=== PATIENT | male | born 1975 | race Caucasian/White ===

== ENCOUNTER 2019-10-08 11:39 | Inpatient (IN) | payer OTHER ==
--- NOTE | 2019-10-08 11:58 | BHS.RME ---
Substance Use & Tx History - Substance Use History Heroin Substance amount: 1 bundle Frequency of use: Daily Substance route: Injection (ex: intravenous or skin popping) Date of Last Use: 10/07/19 Cocaine- Powder Substance amount: $300 Frequency of use: Daily Substance route: Inhalation (ex: sniffing or snorting) Date of Last Use: 10/07/19 Marijuana/Hashish Substance amount: 1 bag Frequency of use: Daily Substance route: Smoking Date of Last Use: 10/07/19 Nicotine Substance amount: 3 ciggs Frequency of use: Daily Substance route: Smoking Date of Last Use: 10/08/19 Physical/Psych/Mental Status - Behavior General Behavior: Increased activity (restlessness, agitation) Eye Contact: Normal - Cooperativeness Cooperativeness: Cooperative - Thinking Thought Processes: Tight, Logical, Goal Directed Thought content: Future oriented - Physical Health Problems Is patient presently having any pain?: No Does patient presently have any injuries (include location): No Does patient currently have a fever: No Is patient : No COWS - Scale Resting Pulse: 0= [place] 80 or Below Sweatin= Chills/Flushing Restless Observation: 1= Difficult to Sit Still Pupil Size: 1= Pupils >than Normal Bone or Joint Aches: 1= Mild Discomfort Runny Nose/ Eye Tearin= Nasal Congestion GI Upset > 30mins: 2= Nausea/Diarrhea Tremor Observation: 1= Tremor [place], Not Seen Yawning Observation: 1= 1-2x During Session Anxiety or Irritability: 1=Feels Anxious/Irritable Goose Flesh Skin: 0=Smooth Skin COWS Score: 10 (used 3 am this morning)
[2019-10-08 15:35] VITALS: BMI 22.4
--- NOTE | 2019-10-08 16:22 | HP ---
COWS - Scale Resting Pulse: 0= [place] 80 or Below Sweatin= Chills/Flushing Restless Observation: 1= Difficult to Sit Still Pupil Size: 1= Pupils >than Normal Bone or Joint Aches: 1= Mild Discomfort Runny Nose/ Eye Tearin= Nasal Congestion GI Upset > 30mins: 2= Nausea/Diarrhea Tremor Observation: 1= Tremor [place], Not Seen Yawning Observation: 1= 1-2x During Session Anxiety or Irritability: 1=Feels Anxious/Irritable Goose Flesh Skin: 0=Smooth Skin COWS Score: 10 (used 3 am this morning) CIWA Score - Admission Criteria OASAS Guidelines: Admission for Medically Managed Detox: Requires at least one of the followin. CIWA greater than 12 2. Seizures within the past 24 hours 3. Delirium tremens within the past 24 hours 4. Hallucinations within the past 24 hours 5. Acute intervention needed for co occurring medical disorder 6. Acute intervention needed for co occurring psychiatric disorder 7. Severe withdrawal that cannot be handled at a lower level of care (continued vomiting, continued diarrhea, abnormal vital signs) requiring intravenous medication and/or fluids 8. Admitting History and Physical - Admission History of Present Illness: Patient presents to [facility] today requesting for detox from heroin PMH: HIV+, HTN PSH: spinal surgery secondary to trauma; screws in back PSYCH: anxiety, depression SOCIAL/DOMICILED:Lives in his apt in the [place] LEGAL: None Substance Use & Tx History - Substance Use History Heroin Substance amount: 1 bundle Frequency of use: Daily Substance route: Injection (ex: intravenous or skin popping) Date of Last Use: 10/07/19 First use at age 19 ODX3, last was 1 wk ago, no narcan at home Cocaine- Powder Substance amount: $300 Frequency of use: Daily Substance route: Inhalation (ex: sniffing or snorting) Date of Last Use: 10/07/19 First use at age 13 Marijuana/Hashish Substance amount: 1 bag Frequency of use: Daily Substance route: Smoking Date of Last Use: 10/07/19 First use at age 11 Nicotine Substance amount: 3 ciggs Frequency of use: Daily Substance route: Smoking Date of Last Use: 10/08/19 First use at age 13 - Advance Directives Advance Directives: Yes: Health Care Proxy - Smoking History Smoking history: Current every day smoker Have you smoked in the past 12 months: Yes Aproximately how many cigarettes per day: 3 Admission ROS BHS - HPI Allergies/Adverse Reactions: Allergies Allergy/AdvReac Type Severity Reaction Status Date / Time No Known Allergies Allergy Verified 10/08/19 15:19 Exam Limitations: No Limitations - Ebola screening Have you traveled outside of the country in the last 21 days: No Have you been sick,other than usual withdrawal symptoms: No Do you have a fever: No - Review of Systems Constitutional: No Symptoms Reported EENT: reports: No Symptoms Reported, Other (wears reading glasses) Respiratory: reports: No Symptoms reported Cardiac: reports: No Symptoms Reported GI: reports: Nausea : reports: No Symptoms Reported Musculoskeletal: reports: Back Pain, Muscle Pain Integumentary: reports: No Symptoms Reported Neuro: reports: Tremors (mild) Endocrine: reports: No Symptoms Reported Hematology: reports: No Symptoms Reported Psychiatric: reports: No Sypmtoms Reported, Orientated x3 Patient History - Patient Medical History Hx Asthma: Yes (reports having ashtma previously but denies currently.pump used 1 month ago) Hx Chronic Obstructive Pulmonary Disease (COPD): No Hx Cardiac Disorders: No Hx Hypertension: Yes Hx Seizures: No Hx Diabetes: No Hx Gastrointestinal Disorders: No Hx Genitourinary Disorders: No Hx Sexually Transmitted Disorders: No Hx Renal Disease (ESRD): No Hx Depression: Yes Hx Suicide Attempt: No Hx Schizophrenia: No - Patient Surgical History Past Surgical History: Yes Other Surgical History: 4 screws and prothesis disk in spine in 2017 Anesthesia Reaction: No - PPD History Previous Implant?: No (pt reports CXR needed b/c he always has positive PPD) Documented Results: Negative w/o proof Implanted On Prior [facility] Admission?: No Results: Negative - Smoking Cessation Smoking history: Current every day smoker Have you smoked in the past 12 months: Yes Aproximately how many cigarettes per day: 3 Hx Chewing Tobacco Use: No Initiated information on smoking cessation: Yes 'Breaking Loose' booklet given: 10/08/19 - Substances abused Cocaine Substance route: Injection Frequency: Daily Amount used: $300-400 worth Age of first use: 22 Date of last use: 10/08/19 Heroin Substance route: Injection Frequency: Daily Amount used: "1 bundle" Age of first use: 17 Date of last use: 10/07/19 Marijuana/Hashish Substance route: Smoking Frequency: Daily Amount used: "1 bag a day" Age of first use: 13 Date of last use: 10/08/19 Other Other (specify): Cigarettes Substance route: Smoking Frequency: Daily Amount used: " 3 cigarettes for the day" Age of first use: 13 Date of last use: 10/08/19 Admission Physical Exam [facility] - Vital Signs Vital Signs: Vital Signs - 24 hr 10/08/19 10/08/19 15:24 16:02 Temperature 97.0 F L 97.0 F L Pulse Rate 81 81 Respiratory 12 12 Rate Blood Pressure 125/88 125/88 - Physical General Appearance: Yes: Within Normal Limits, No Apparent Distress, Nourished, Appropriately Dressed HEENTM: Yes: Within Normal Limits, EOMI, Hearing grossly Normal, Normal ENT Inspection, Normocephalic, Normal Voice, MATT Respiratory: Yes: Within Normal Limits, Chest Non-Tender, Lungs Clear, Normal Breath Sounds, No Respiratory Distress, No Accessory Muscle Use Neck: Yes: Within Normal Limits, No masses,lesions,Nodules, Trachea in good position Breast: Yes: Breast Exam Deferred Cardiology: Yes: Within Normal Limits, Regular Rhythm, Regular Rate, Gallop/S4 Genitourinary: Yes: Within Normal Limits Back: Yes: Within Normal Limits, Normal Inspection, Other (Mid-line lumbar surgical scar) Extremities: Yes: Within Normal Limits, Normal Capillary Refill, Normal Inspection, Normal Range of Motion, Non-Tender Neurological: Yes: Fully Oriented, Alert, Normal Mood/Affect Integumentary: Yes: Within Normal Limits - Diagnostic (1) Heroin dependence Current Visit: Yes Status: Chronic (2) Cocaine use disorder Current Visit: Yes Status: Chronic (3) Marijuana dependence Current Visit: Yes Status: Chronic (4) Nicotine addiction Current Visit: Yes Status: Chronic Qualifiers: Nicotine product type: cigarettes Cleared for Admission [facility] - Detox or Rehab [facility] Level of Care: Medically Managed Detox Regimen/Protocol: Methadone Screened but not Admitted - Documentation of Visit Screened but not Admitted: No Breathalyzer - Breathalyzer Breathalyzer: 0 Urine Drug Screen - Test Device Lot number: [id number] Expiration date: 11/22/20 - Control Is test valid?: Yes - Results Drug screen NEGATIVE: No Urine drug screen results: THC-Marijuana, NAHUM-Cocaine, FEN-Fentanyl, MOP-Opiates Inpatient Rehab Admission - Rehab Decision to Admit Inpatient rehab admission?: No
[2019-10-08] MEDS ORDERED: IBUPROFEN 400 MG TABLET (FP) PO PRN (16:52)
[2019-10-08] MEDS ORDERED: ONDANSETRON *ODT* 4 MG TABLET SL ONE (16:52)
[2019-10-08] MEDS ORDERED: MAG HYDROX/AL HYDROX/SIMETH 30 ML UNIT-DOSE CUP PO PRN (16:52)
[2019-10-08] MEDS ORDERED: MENTHOL/PHENOL 1 EACH UD MM PRN (16:52)
[2019-10-08] MEDS ORDERED: BISMUTH SUBSALICYLATE 524 MG/30 ML UD PO PRN (16:52)
[2019-10-08] MEDS ORDERED: MAGNESIUM HYDROX 2400MG/30ML ORAL SUSPENSION 30 ML CUP PO PRN (16:52)
[2019-10-08] MEDS ORDERED: ACETAMINOPHEN 325 MG TABLET (FP) PO PRN ×2 (16:52)
[2019-10-08] MEDS ORDERED: MAGNESIUM CITRATE 300 ML BOTTLE PO PRN (16:52)
[2019-10-08] MEDS ORDERED: METHADONE HCL 10 MG TABLET (FOR DETOX USE ONLY) PO ONE (16:52)
[2019-10-08] MEDS: NICOTINE 7 MG/24 HOURS TOPICAL PATCH TD SCH (17:46)
[2019-10-08] MEDS: PRENATAL VITAMINS W/ FOLIC ACID TABLET (FP) PO SCH (17:47)
[2019-10-08] MEDS: hydrOXYzine PAMOATE 25 MG CAPSULE (FP) PO SCH ×2 (18:13→21:04)
[2019-10-08] MEDS: MELATONIN 5 MG TABLETS PO SCH (21:04)
[2019-10-08] MEDS: cloNIDine HCL 0.1 MG TABLET PO PRN (21:04)
[2019-10-08] MEDS: THIAMINE HCL 100 MG TABLET (FP) PO SCH (21:04)
[2019-10-08] MEDS: METHOCARBAMOL 500 MG TABLET PO PRN (21:04)
[2019-10-09] MEDS: hydrOXYzine PAMOATE 25 MG CAPSULE (FP) PO SCH (05:29)
--- NOTE | 2019-10-09 08:29 | CONSULT ---
[facility] Psychiatric Consult - Data Date of interview: 10/09/19 Admission source: [facility] Identifying data: Mr Gonzales is a 44 years old male, father of 2 children, unemployed receiving SSI, domiciled living in the [place] seeking detox treatment for opioid, cocaine and cannabis Substance Abuse History: Reports history of heroin, cocaine and marijuana use. Refer to addiction counselor's summary for further information Medical History: Significant for HIV since 2004, hypertension and spinal surgery in 2017. Smokes 3 cigarettes daily Psychiatric History: This is patient's first admission to this facility. He reports that his first psychiatric contact occured in 1998 while in intermediate in [place]. He said that he was diagnosed with depression and anxiety and started on Zyprexa, Vistaril and Klonopin. Reports that he has been receiving psychiatric treament since in and after he immigrated to [facility] in March 2017. He currently receives outpatient treatment at a [facility] clinic at [address] [place] [address] in the [place] and he is prescribed Zyprexa 2.5 mg/hs, Vistarin 50 mg/tid and Melatonin 5 mg/hs. Denies previous psychiatric hospitalization or suicidal attempt. At present, denes experiencing depressive, anxiet symptoms, S/H ideations. However, reports sleeping poorly Physical/Sexual Abuse/Trauma History: Denies history of abuse as a child or DV relationshi as an adult Mental Status Exam - Mental Status Exam Alert and Oriented to: Time, Place, Person Cognitive Function: Fair Patient Appearance: Well Groomed Mood: Hopeful, Euthymic Patient Behavior: Cooperative Voice Loudness: Normal Thought Process: Intact, Goal Oriented Thought Disorder: Not Present Hallucinations: Denies Suicidal Ideation: Denies Homicidal Ideation: Denies Insight/Judgement: Poor Sleep: Poorly Appetite: Good Muscle strength/Tone: Normal Gait/Station: Normal Psychiatric Findings - Problem List ([place] 1, 2,3) (1) Depression with anxiety Current Visit: Yes Status: Chronic (2) Substance-induced sleep disorder Current Visit: Yes Status: Acute (3) Uncomplicated opioid dependence Current Visit: Yes Status: Acute (4) Cocaine dependence Current Visit: Yes Status: Acute (5) Cannabis dependence Current Visit: Yes Status: Acute (6) Nicotine addiction Current Visit: Yes Status: Chronic Qualifiers: Nicotine product type: cigarettes (7) HIV (human immunodeficiency virus infection) Current Visit: Yes Status: Chronic (8) HTN (hypertension) Current Visit: Yes Status: Chronic - Initial Treatment Plan Initial Treatment Plan: 1) Continue Zyprexa 2.5 mg po HS. 2) Start Vistaril 50 mg po Q 4hrs prn for anxiety and Melatonin 5 mg po HS prn for insomnia. 3) Continue inpaient detoxification
[2019-10-09] MEDS ORDERED: METHADONE HCL 10 MG TABLET (FOR DETOX USE ONLY) ONE (08:39)
[2019-10-09] MEDS ORDERED: METHADONE HCL 5 MG TABLET (FOR DETOX USE ONLY) ONE (08:39)
[2019-10-09 09:44] LABS: HEMATOCRIT 41.2 % (35.4-49); HEMOGLOBIN 13.8 GM/dL (11.7-16.9); MCH 31.2 pg (25.7-33.7); MCHC 33.6 g/dl (32.0-35.9); MEAN CELL VOLUME 92.9 fl (80-96); MEAN PLT VOLUME 7.6 fl (7.5-11.1); PLATELET COUNT 287 K/MM3 (134-434); RBC 4.43 M/mm3 (4.00-5.60); RDW 14.4 % (11.9-15.9); WHITE BLOOD COUNT 4.4 K/mm3 (4.0-10.0)
[2019-10-09] MEDS ORDERED: METHADONE (DETOX) 20 MG, METHADONE (DETOX) 5 MG PO ONE (10:00)
[2019-10-09 10:02] LABS: POTASSIUM 4.3 mmol/L (3.5-5.1)
[2019-10-09 10:10] LABS: ALBUMIN 3.4 g/dl (3.4-5.0); BILIRUBIN,TOTAL 0.7 mg/dL (0.2-1); BLOOD UREA NITROGEN 12.8 mg/dL (7-18); CALCIUM 9.1 mg/dL (8.5-10.1); TOT PROT 6.8 g/dl (6.4-8.2)
--- NOTE | 2019-10-09 10:19 | EKG ---
Test Reason : Blood Pressure : / mmHG Vent. Rate : 072 BPM Atrial Rate : 072 BPM P-R Int : 156 ms QRS Dur : 100 ms QT Int : 370 ms P-R-T Axes : 083 072 057 degrees QTc Int : 405 ms NORMAL SINUS RHYTHM POSSIBLE LEFT ATRIAL ENLARGEMENT LEFT VENTRICULAR HYPERTROPHY ABNORMAL ECG NO PREVIOUS ECGS AVAILABLE Confirmed by RIOS SALGADO MD ([id number]) on 10/09/2019 10:18:44 AM Referred By: Confirmed By:RIOS SALGADO MD
[2019-10-09] MEDS: PRENATAL VITAMINS W/ FOLIC ACID TABLET (FP) PO SCH (11:06)
[2019-10-09] MEDS: NICOTINE 7 MG/24 HOURS TOPICAL PATCH TD SCH (11:06)
[2019-10-09] MEDS: hydrOXYzine PAMOATE 50 MG CAPSULE (FP) PO PRN ×3 (11:09→22:11)
--- NOTE | 2019-10-09 11:41 | PN ---
S COWS - Scale Resting Pulse: 0= [place] 80 or Below Sweatin= No chills or Flushing Restless Observation: 1= Difficult to Sit Still Pupil Size: 1= Pupils >than Normal Bone or Joint Aches: 1= Mild Discomfort Runny Nose/ Eye Tearin= Nasal Congestion GI Upset > 30mins: 2= Nausea/Diarrhea Tremor Observation of Outstretched Hands: 2= Slight Tremor Visible Yawning Observation: 1= 1-2x During Session Anxiety or Irritability: 2=Irritable/Anxious Goose Flesh Skin: 0=Smooth Skin COWS Score: 11 S Progress Note (SOAP) Subjective: alert,irritable,anxious,interrupted sleep,pain in the body and back,rash left forearm ,pain in the back,nausea,history of back surgery before Objective: 10/09/19 11:52 Vital Signs Temperature 97.3 F L 10/09/19 08:35 Pulse Rate 79 10/09/19 08:35 Respiratory Rate 17 10/09/19 08:35 Blood Pressure 123/84 10/09/19 08:35 O2 Sat by Pulse Oximetry (%) 98 10/09/19 08:35 Laboratory Last Values WBC 4.4 K/mm3 (4.0-10.0) 10/09/19 07:20 RBC 4.43 M/mm3 (4.00-5.60) 10/09/19 07:20 Hgb 13.8 GM/dL (11.7-16.9) 10/09/19 07:20 Hct 41.2 % (35.4-49) 10/09/19 07:20 MCV 92.9 fl (80-96) 10/09/19 07:20 MCH 31.2 pg (25.7-33.7) 10/09/19 07:20 MCHC 33.6 g/dl (32.0-35.9) 10/09/19 07:20 RDW 14.4 % (11.9-15.9) 10/09/19 07:20 Plt Count 287 K/MM3 (134-434) 10/09/19 07:20 MPV 7.6 fl (7.5-11.1) 10/09/19 07:20 Sodium 137 mmol/L (136-145) 10/09/19 07:20 Potassium 4.3 mmol/L (3.5-5.1) 10/09/19 07:20 Chloride 103 mmol/L (98-107) 10/09/19 07:20 Carbon Dioxide 30 mmol/L (21-32) 10/09/19 07:20 Anion Gap 4 MMOL/L (8-16) L 10/09/19 07:20 BUN 12.8 mg/dL (7-18) 10/09/19 07:20 Creatinine 1.0 mg/dL (0.55-1.3) 10/09/19 07:20 Est GFR (CKD-EPI)AfAm 106.36 10/09/19 07:20 Est GFR (CKD-EPI)NonAf 91.77 10/09/19 07:20 Random Glucose 84 mg/dL (74-106) 10/09/19 07:20 Calcium 9.1 mg/dL (8.5-10.1) 10/09/19 07:20 Total Bilirubin 0.7 mg/dL (0.2-1) 10/09/19 07:20 AST 18 U/L (15-37) 10/09/19 07:20 ALT 26 U/L (13-61) 10/09/19 07:20 Alkaline Phosphatase 66 U/L (45-117) 10/09/19 07:20 Total Protein 6.8 g/dl (6.4-8.2) 10/09/19 07:20 Albumin 3.4 g/dl (3.4-5.0) 10/09/19 07:20 Syphilis Serology Non-reactive (NONREACTIVE) 10/09/19 07:20 Assessment: 10/09/19 11:56 withdrawal symptom Plan: continue methadone regimen,add valium 10 mgs po q 4 hrs prn,for 72 hrs,hydrocortisone cream 0.05% over rash prn, on neurontin 800 mgs po bid,on genvoya
[2019-10-09] MEDS: ELVITEG/COB/EMTRI/TENOF (GENVOYA) TABLET (NF) PO SCH (11:55)
[2019-10-09] MEDS ORDERED: HYDROCORTISONE 0.5% TOPICAL CREAM 30 GM TUBE TP SCH (12:00)
[2019-10-09] MEDS: diazePAM 5 MG TABLET PO PRN ×3 (12:02→22:12)
[2019-10-09] MEDS: HYDROCORTISONE 0.5% TOPICAL CREAM 30 GM TUBE TP SCH ×2 (15:45→22:08)
[2019-10-09] MEDS: OLANZapine 2.5 MG TABLET PO SCH (22:08)
[2019-10-09] MEDS: MELATONIN 5 MG TABLETS PO SCH (22:08)
[2019-10-09] MEDS: GABAPENTIN 400 MG CAPSULE PO SCH (22:08)
[2019-10-09] MEDS: THIAMINE HCL 100 MG TABLET (FP) PO SCH (22:08)
[2019-10-10] MEDS ORDERED: METHADONE HCL 10 MG TABLET (FOR DETOX USE ONLY) PO ONE (10:00)
[2019-10-10] MEDS: ELVITEG/COB/EMTRI/TENOF (GENVOYA) TABLET (NF) PO SCH (10:19)
[2019-10-10] MEDS: GABAPENTIN 400 MG CAPSULE PO SCH ×2 (10:19→22:21)
[2019-10-10] MEDS: NICOTINE 7 MG/24 HOURS TOPICAL PATCH TD SCH (10:20)
[2019-10-10] MEDS: HYDROCORTISONE 0.5% TOPICAL CREAM 30 GM TUBE TP SCH ×2 (10:20→22:22)
[2019-10-10] MEDS: PRENATAL VITAMINS W/ FOLIC ACID TABLET (FP) PO SCH (10:20)
[2019-10-10] MEDS: diazePAM 5 MG TABLET PO PRN ×3 (10:23→22:24)
[2019-10-10] MEDS: NICOTINE POLACRILEX 2 MG GUM BUC PRN ×4 (10:24→23:10)
--- NOTE | 2019-10-10 12:17 | PN ---
BHS COWS - Scale Resting Pulse: 1= [place] 81-100 Sweatin= Chills/Flushing Restless Observation: 0= Sits Still Pupil Size: 0= Normal to Room Light Bone or Joint Aches: 2= Severe Diffuse Aches Runny Nose/ Eye Tearin= None GI Upset > 30mins: 0= None Tremor Observation of Outstretched Hands: 2= Slight Tremor Visible Yawning Observation: 0= None Anxiety or Irritability: 2=Irritable/Anxious Goose Flesh Skin: 0=Smooth Skin COWS Score: 8 BHS Progress Note (SOAP) Subjective: Complaints of anxiety, chills, body aches and shakes. Objective: 10/10/19 12:13 Vital Signs 10/10/19 10/10/19 05:11 08:35 Temperature 97.8 F 98.2 F Pulse Rate 71 92 H Respiratory 16 17 Rate Blood Pressure 138/81 146/90 O2 Sat by Pulse 99 98 Oximetry (%) Laboratory Last Values WBC 4.4 K/mm3 (4.0-10.0) 10/09/19 07:20 RBC 4.43 M/mm3 (4.00-5.60) 10/09/19 07:20 Hgb 13.8 GM/dL (11.7-16.9) 10/09/19 07:20 Hct 41.2 % (35.4-49) 10/09/19 07:20 MCV 92.9 fl (80-96) 10/09/19 07:20 MCH 31.2 pg (25.7-33.7) 10/09/19 07:20 MCHC 33.6 g/dl (32.0-35.9) 10/09/19 07:20 RDW 14.4 % (11.9-15.9) 10/09/19 07:20 Plt Count 287 K/MM3 (134-434) 10/09/19 07:20 MPV 7.6 fl (7.5-11.1) 10/09/19 07:20 Sodium 137 mmol/L (136-145) 10/09/19 07:20 Potassium 4.3 mmol/L (3.5-5.1) 10/09/19 07:20 Chloride 103 mmol/L (98-107) 10/09/19 07:20 Carbon Dioxide 30 mmol/L (21-32) 10/09/19 07:20 Anion Gap 4 MMOL/L (8-16) L 10/09/19 07:20 BUN 12.8 mg/dL (7-18) 10/09/19 07:20 Creatinine 1.0 mg/dL (0.55-1.3) 10/09/19 07:20 Est GFR (CKD-EPI)AfAm 106.36 10/09/19 07:20 Est GFR (CKD-EPI)NonAf 91.77 10/09/19 07:20 Random Glucose 84 mg/dL (74-106) 10/09/19 07:20 Calcium 9.1 mg/dL (8.5-10.1) 10/09/19 07:20 Total Bilirubin 0.7 mg/dL (0.2-1) 10/09/19 07:20 AST 18 U/L (15-37) 10/09/19 07:20 ALT 26 U/L (13-61) 10/09/19 07:20 Alkaline Phosphatase 66 U/L (45-117) 10/09/19 07:20 Total Protein 6.8 g/dl (6.4-8.2) 10/09/19 07:20 Albumin 3.4 g/dl (3.4-5.0) 10/09/19 07:20 Syphilis Serology Non-reactive (NONREACTIVE) 10/09/19 07:20 HIV Ag/Ab Combo Qual Presumptive positive (NEGATIVE) A* 10/09/19 07:20 Labs noted, pt has a history of HIV positive. 10/10/19 12:18 Assessment: 10/10/19 12:16 Alert and oriented x 3, in no acute respiratory distress. Full ROM, ambulating in the unit without assistance. Withdrawal symptoms. Plan: Continue detox protocol.
[2019-10-10] MEDS: hydrOXYzine PAMOATE 50 MG CAPSULE (FP) PO PRN ×2 (16:40→22:24)
[2019-10-10] MEDS: cloNIDine HCL 0.1 MG TABLET PO PRN (17:15)
[2019-10-10] MEDS: THIAMINE HCL 100 MG TABLET (FP) PO SCH (22:21)
[2019-10-10] MEDS: OLANZapine 2.5 MG TABLET PO SCH (22:21)
[2019-10-10] MEDS: MELATONIN 5 MG TABLETS PO SCH (22:22)
[2019-10-11] MEDS: hydrOXYzine PAMOATE 50 MG CAPSULE (FP) PO PRN ×5 (05:38→23:47)
[2019-10-11] MEDS: diazePAM 5 MG TABLET PO PRN ×5 (05:38→23:47)
[2019-10-11] MEDS ORDERED: METHADONE HCL 5 MG TABLET (FOR DETOX USE ONLY) ONE (09:42)
[2019-10-11] MEDS ORDERED: METHADONE HCL 10 MG TABLET (FOR DETOX USE ONLY) ONE (09:42)
[2019-10-11] MEDS ORDERED: METHADONE (DETOX) 10 MG, METHADONE (DETOX) 5 MG PO ONE (10:00)
[2019-10-11] MEDS: PRENATAL VITAMINS W/ FOLIC ACID TABLET (FP) PO SCH (10:57)
[2019-10-11] MEDS: ELVITEG/COB/EMTRI/TENOF (GENVOYA) TABLET (NF) PO SCH (10:57)
[2019-10-11] MEDS: NICOTINE 7 MG/24 HOURS TOPICAL PATCH TD SCH (10:58)
[2019-10-11] MEDS: HYDROCORTISONE 0.5% TOPICAL CREAM 30 GM TUBE TP SCH ×2 (10:58→22:15)
[2019-10-11] MEDS: GABAPENTIN 400 MG CAPSULE PO SCH ×2 (10:58→22:14)
[2019-10-11] MEDS ORDERED: LOSARTAN POTASSIUM 25 MG TABLET PO ONE (12:37)
--- NOTE | 2019-10-11 12:43 | PN ---
BHS COWS - Scale Resting Pulse: 1= [place] 81-100 Sweatin= Chills/Flushing Restless Observation: 0= Sits Still Pupil Size: 0= Normal to Room Light Bone or Joint Aches: 2= Severe Diffuse Aches Runny Nose/ Eye Tearin= None GI Upset > 30mins: 1= Stomach Cramp Tremor Observation of Outstretched Hands: 2= Slight Tremor Visible Yawning Observation: 0= None Anxiety or Irritability: 0= None Goose Flesh Skin: 0=Smooth Skin COWS Score: 7 BHS Progress Note (SOAP) Subjective: Body aches, anxiety, interrupted sleep. Patient stated he takes Avapro at home for his HTN but it's not available here and he wasn't ordered for any b/p medication and is concerned. Objective: 10/11/19 12:43 Last Vital Signs Temp Pulse Resp BP Pulse Ox 98.7 F 97 H 18 132/90 99 10/11/19 09:00 10/11/19 09:00 10/11/19 09:00 10/11/19 09:00 10/11/19 09:00 Laboratory Tests 10/09/19 10/09/19 10/09/19 07:20 07:20 07:20 WBC 4.4 RBC 4.43 Hgb 13.8 Hct 41.2 MCV 92.9 MCH 31.2 MCHC 33.6 RDW 14.4 Plt Count 287 MPV 7.6 Sodium Potassium Chloride Carbon Dioxide Anion Gap BUN Creatinine Est GFR (CKD-EPI)AfAm Est GFR (CKD-EPI)NonAf Random Glucose Calcium Total Bilirubin AST ALT Alkaline Phosphatase Total Protein Albumin Syphilis Serology Non-reactive HIV Ag/Ab Combo Qual Presumptive positive A* HIV-1 Antibody HIV Ag/Ab Interpret HIV-2 Antibody HIV 1&2 Ag/Ab, 4th Gen 10/09/19 10/09/19 07:20 07:20 WBC RBC Hgb Hct MCV MCH MCHC RDW Plt Count MPV Sodium 137 Potassium 4.3 Chloride 103 Carbon Dioxide 30 Anion Gap 4 L BUN 12.8 Creatinine 1.0 Est GFR (CKD-EPI)AfAm 106.36 Est GFR (CKD-EPI)NonAf 91.77 Random Glucose 84 Calcium 9.1 Total Bilirubin 0.7 AST 18 ALT 26 Alkaline Phosphatase 66 Total Protein 6.8 Albumin 3.4 Syphilis Serology HIV Ag/Ab Combo Qual HIV-1 Antibody Positive H HIV Ag/Ab Interpret Hiv-1 positive HIV-2 Antibody Negative HIV 1&2 Ag/Ab, 4th Gen Reactive H Labs reviewed Assessment: 10/11/19 12:46 Withdrawal sxs Elevated b/p noted Plan: Continue detox Encouraged PO water intake Follow up on presumptive positive HIV test HTN: Avapro not available (NF), will start on Losartan 25mg PO daily, first dose today. Patient can resume his Avapro when he's discharged home.
[2019-10-11] MEDS: NICOTINE POLACRILEX 2 MG GUM BUC PRN (19:45)
[2019-10-11] MEDS: THIAMINE HCL 100 MG TABLET (FP) PO SCH (22:14)
[2019-10-11] MEDS: OLANZapine 2.5 MG TABLET PO SCH (22:14)
[2019-10-11] MEDS: MELATONIN 5 MG TABLETS PO SCH (22:15)
[2019-10-12] MEDS ORDERED: METHADONE HCL 10 MG TABLET (FOR DETOX USE ONLY) PO ONE (10:00)
[2019-10-12] MEDS: GABAPENTIN 400 MG CAPSULE PO SCH ×2 (10:46→22:02)
[2019-10-12] MEDS: ELVITEG/COB/EMTRI/TENOF (GENVOYA) TABLET (NF) PO SCH (10:46)
[2019-10-12] MEDS: LOSARTAN POTASSIUM 50 MG TABLET (FP) PO SCH (10:46)
[2019-10-12] MEDS: HYDROCORTISONE 0.5% TOPICAL CREAM 30 GM TUBE TP SCH ×2 (10:47→22:01)
[2019-10-12] MEDS: NICOTINE 7 MG/24 HOURS TOPICAL PATCH TD SCH (10:47)
[2019-10-12] MEDS: PRENATAL VITAMINS W/ FOLIC ACID TABLET (FP) PO SCH (10:47)
[2019-10-12] MEDS: diazePAM 5 MG TABLET PO PRN (10:51)
[2019-10-12] MEDS: hydrOXYzine PAMOATE 50 MG CAPSULE (FP) PO PRN ×3 (12:17→22:03)
--- NOTE | 2019-10-12 12:30 | PN ---
BHS COWS - Scale Resting Pulse: 1= [place] 81-100 Sweatin= No chills or Flushing Restless Observation: 0= Sits Still Pupil Size: 0= Normal to Room Light Bone or Joint Aches: 1= Mild Discomfort Runny Nose/ Eye Tearin= Nasal Congestion GI Upset > 30mins: 1= Stomach Cramp Tremor Observation of Outstretched Hands: 2= Slight Tremor Visible Yawning Observation: 0= None Anxiety or Irritability: 2=Irritable/Anxious Goose Flesh Skin: 0=Smooth Skin COWS Score: 8 BHS Progress Note (SOAP) Subjective: alert,irritable,anxious,interrupted sleep Objective: 10/12/19 12:30 Vital Signs Temperature 97.1 F L 10/12/19 08:46 Pulse Rate 86 10/12/19 08:46 Respiratory Rate 19 10/12/19 08:46 Blood Pressure 143/78 10/12/19 08:46 O2 Sat by Pulse Oximetry (%) 96 10/12/19 08:46 Assessment: 10/12/19 12:30 withdrawal symptom Plan: continue detox methadone regimen,discharge in am
[2019-10-12] MEDS: METHOCARBAMOL 500 MG TABLET PO PRN (18:02)
--- NOTE | 2019-10-12 18:14 | PN ---
[facility] Progress Note Note: Psychiatry Attending's note (follow-up) : Approached by nurse and counselor. Concern : memory deficits/disorientation. Chart reviewed. Dr Elliott's note (10/09/19) : appreciated. Met with the patient at bedside. Doing fine. Was observed talking to RNs at the nurse's station. Ambulatory. Steady gait. Coherent/goal-directed speech. Alert and oriented to the three spheres. Future-oriented. Mr Oliveira asks to get rehabilitatiion her at [facility]. " I like it here. I would prefer to stay here rather than be sent elsewhere." Patient has a good understanding of the monegasque language. Stable mental status. Clear sensorium. No clinical evidence of impaired mentation. Baseline functioning. Of note : patient is still medication-seeking (vistaril not working / wants more diazepam). Limits set. Reassurance given. Brief conference with patient. Counselor explains discharge plans. Patient is informed of his potential transfer to [facility] in the morning. He is agreeable to plan. No indication for special observation or psychiatric reconsultation.
[2019-10-12] MEDS: OLANZapine 2.5 MG TABLET PO SCH (22:02)
[2019-10-12] MEDS: THIAMINE HCL 100 MG TABLET (FP) PO SCH (22:02)
[2019-10-12] MEDS: MELATONIN 5 MG TABLETS PO SCH (22:03)
[2019-10-13] MEDS: hydrOXYzine PAMOATE 50 MG CAPSULE (FP) PO PRN ×2 (05:42→09:56)
[2019-10-13] MEDS ORDERED: METHADONE HCL 5 MG TABLET (FOR DETOX USE ONLY) PO ONE (06:00)
[2019-10-13] MEDS: ELVITEG/COB/EMTRI/TENOF (GENVOYA) TABLET (NF) PO SCH (07:39)
--- NOTE | 2019-10-13 09:33 | PN ---
BHS COWS - Scale Resting Pulse: 0= [place] 80 or Below Sweatin= No chills or Flushing Restless Observation: 0= Sits Still Pupil Size: 0= Normal to Room Light Bone or Joint Aches: 0= None Runny Nose/ Eye Tearin= None GI Upset > 30mins: 0= None Tremor Observation of Outstretched Hands: 0= None Yawning Observation: 0= None Anxiety or Irritability: 1=Feels Anxious/Irritable Goose Flesh Skin: 0=Smooth Skin COWS Score: 1 BHS Progress Note (SOAP) Subjective: aleert,no complaint Objective: 10/13/19 09:32 Vital Signs Temperature 98.0 F 10/13/19 05:32 Pulse Rate 79 10/13/19 05:32 Respiratory Rate 16 10/13/19 05:32 Blood Pressure 157/77 10/13/19 05:32 O2 Sat by Pulse Oximetry (%) 96 10/13/19 05:32 Assessment: 10/13/19 09:32 detox completed,no withdrawal symptom Plan: stable for discharge today,follow up with [facility] as arrangement
--- NOTE | 2019-10-13 09:41 | DS ---
[facility] Detox Discharge Summary Admission Date: 10/08/19 Discharge Date: 10/13/19 - History Present History: Cannabis Dependence, Cocaine Dependence, Opioid Dependence Additional Comments: alert,oriented x 3 ambulation on the unit lung clear on auscultation bilaterally abdomen soft,no distension,no pain detox completed,no withdrawal symptom stable for discharge follow up with after care program as arrangement total time of discharge 35 minutes follow up with after care program [facility] as arrangement Pertinent Past History: neuropathy nicotine dependence hiv asthma anxiety and depression - Physical Exam Results Vital Signs: Vital Signs Temperature 98.0 F 10/13/19 05:32 Pulse Rate 79 10/13/19 05:32 Respiratory Rate 16 10/13/19 05:32 Blood Pressure 157/77 10/13/19 05:32 O2 Sat by Pulse Oximetry (%) 96 10/13/19 05:32 Pertinent Admission Physical Exam Findings: withdrawal signs and symptom Laboratory Last Values WBC 4.4 K/mm3 (4.0-10.0) 10/09/19 07:20 RBC 4.43 M/mm3 (4.00-5.60) 10/09/19 07:20 Hgb 13.8 GM/dL (11.7-16.9) 10/09/19 07:20 Hct 41.2 % (35.4-49) 10/09/19 07:20 MCV 92.9 fl (80-96) 10/09/19 07:20 MCH 31.2 pg (25.7-33.7) 10/09/19 07:20 MCHC 33.6 g/dl (32.0-35.9) 10/09/19 07:20 RDW 14.4 % (11.9-15.9) 10/09/19 07:20 Plt Count 287 K/MM3 (134-434) 10/09/19 07:20 MPV 7.6 fl (7.5-11.1) 10/09/19 07:20 Sodium 137 mmol/L (136-145) 10/09/19 07:20 Potassium 4.3 mmol/L (3.5-5.1) 10/09/19 07:20 Chloride 103 mmol/L (98-107) 10/09/19 07:20 Carbon Dioxide 30 mmol/L (21-32) 10/09/19 07:20 Anion Gap 4 MMOL/L (8-16) L 10/09/19 07:20 BUN 12.8 mg/dL (7-18) 10/09/19 07:20 Creatinine 1.0 mg/dL (0.55-1.3) 10/09/19 07:20 Est GFR (CKD-EPI)AfAm 106.36 10/09/19 07:20 Est GFR (CKD-EPI)NonAf 91.77 10/09/19 07:20 Random Glucose 84 mg/dL (74-106) 10/09/19 07:20 Calcium 9.1 mg/dL (8.5-10.1) 10/09/19 07:20 Total Bilirubin 0.7 mg/dL (0.2-1) 10/09/19 07:20 AST 18 U/L (15-37) 10/09/19 07:20 ALT 26 U/L (13-61) 10/09/19 07:20 Alkaline Phosphatase 66 U/L (45-117) 10/09/19 07:20 Total Protein 6.8 g/dl (6.4-8.2) 10/09/19 07:20 Albumin 3.4 g/dl (3.4-5.0) 10/09/19 07:20 Syphilis Serology Non-reactive (NONREACTIVE) 10/09/19 07:20 COVID-19 (KIERAN) Not detected (Not Detected) 10/08/19 15:30 HIV Ag/Ab Combo Qual Presumptive positive (NEGATIVE) A* 10/09/19 07:20 HIV-1 Antibody Positive (Negative) H 10/09/19 07:20 HIV Ag/Ab Interpret Hiv-1 positive (.) 10/09/19 07:20 HIV-2 Antibody Negative (Negative) 10/09/19 07:20 HIV 1&2 Ag/Ab, 4th Gen Reactive (Non Reactive) H 10/09/19 07:20 - Treatment Hospital Course: Detox Protocol Followed, Detoxed Safely, Responded well, Discharged Condition Good, Rehab Referral Accepted - Medication Discharge Medications: Ambulatory Orders Albuterol Sulfate Inhaler - [Ventolin Hfa Inhaler -] 1 - 2 inh PO QID 10/08/19 Elviteg/Cob/Emtri/Tenof Alafen [Genvoya Tablet] 1 each PO DAILY 10/08/19 Gabapentin 800 mg PO BID 10/08/19 Irbesartan [Avapro] 150 mg PO DAILY 10/08/19 Melatonin 5 mg PO HS 10/08/19 Olanzapine 2.5 mg PO HS 10/08/19 hydrOXYzine PAMOATE [Vistaril -] 50 mg PO TID PRN 10/08/19 - Diagnosis (1) Opioid dependence with withdrawal Current Visit: Yes Status: Acute (2) Cannabis dependence Current Visit: Yes Status: Acute (3) Cocaine dependence Current Visit: Yes Status: Acute (4) HIV (human immunodeficiency virus infection) Current Visit: Yes Status: Chronic (5) HTN (hypertension) Current Visit: Yes Status: Chronic (6) Weight loss Current Visit: Yes Status: Acute (7) Nicotine addiction Current Visit: Yes Status: Chronic Qualifiers: Nicotine product type: cigarettes (8) Neuropathy Current Visit: Yes Status: Acute - AMA Did Patient Leave Against Medical Advice: No
[2019-10-13 09:47] VITALS: BP 140/94; PULSE 92; TEMP 97.3
[2019-10-13] MEDS: NICOTINE 7 MG/24 HOURS TOPICAL PATCH TD SCH (09:53)
[2019-10-13] MEDS: PRENATAL VITAMINS W/ FOLIC ACID TABLET (FP) PO SCH (09:53)
[2019-10-13] MEDS: GABAPENTIN 400 MG CAPSULE PO SCH (09:54)
[2019-10-13] MEDS: LOSARTAN POTASSIUM 50 MG TABLET (FP) PO SCH (09:54)
[2019-10-13] MEDS: NICOTINE POLACRILEX 2 MG GUM BUC PRN (09:57)
[2019-10-13] MEDS: HYDROCORTISONE 0.5% TOPICAL CREAM 30 GM TUBE TP SCH (09:59)
== END 2019-10-13 12:52 | disposition other institution (70) | DRG 773 ==
LOC: YASAS 11:39 → Y6N 15:52
PROVIDERS: ADMIT Allergy & Immunology; ATTEND Allergy & Immunology
PROC: HZ2ZZZZ Detoxification Services for Substance Abuse Treatment (ICD-10-PCS; principal; 2019-10-08)
DX: F11.23 Opioid dependence with withdrawal (principal); F14.20 Cocaine dependence, uncomplicated; F12.20 Cannabis dependence, uncomplicated; F17.210 Nicotine dependence, cigarettes, uncomplicated; F19.282 Other psychoactive substance dependence with psychoactive substance-induced sleep disorder; F41.8 Other specified anxiety disorders; F32.9 Major depressive disorder, single episode, unspecified; Z21 Asymptomatic human immunodeficiency virus [HIV] infection status; G62.9 Polyneuropathy, unspecified; J45.909 Unspecified asthma, uncomplicated; I10 Essential (primary) hypertension; R21 Rash and other nonspecific skin eruption; R63.4 Abnormal weight loss; Z68.22 Body mass index [BMI] 22.0-22.9, adult; Z56.0 Unemployment, unspecified
CPT/HCPCS: 36415; 80053; 85027; 86780; 86803; 87389; 93005; 93010; J0735; U0003

== ENCOUNTER 2019-10-13 13:20 | Inpatient (IN) | payer OTHER ==
[2019-10-13] MEDS ORDERED: MAGNESIUM HYDROX 2400MG/30ML ORAL SUSPENSION 30 ML CUP PO PRN (13:55)
[2019-10-13] MEDS ORDERED: guaiFENesin 200 MG/10 ML 10 ML UNIT-DOSE CUPS PO PRN (13:55)
[2019-10-13] MEDS ORDERED: ACETAMINOPHEN 325 MG TABLET (FP) PO PRN (13:55)
[2019-10-13] MEDS ORDERED: LOPERAMIDE HCL 2 MG CAPSULE PO PRN (13:55)
[2019-10-13] MEDS ORDERED: MAGNESIUM CITRATE 300 ML BOTTLE PO PRN (13:55)
[2019-10-13] MEDS ORDERED: IBUPROFEN 400 MG TABLET (FP) PO PRN (13:55)
[2019-10-13] MEDS ORDERED: MENTHOL/PHENOL 1 EACH UD MM PRN (13:55)
[2019-10-13] MEDS ORDERED: P-EPHED 60MG/TRIPROLIDI 2.5MG TABLET PO PRN (13:55)
[2019-10-13] MEDS ORDERED: MAG HYDROX/AL HYDROX/SIMETH 30 ML UNIT-DOSE CUP PO PRN (13:55)
[2019-10-13] MEDS ORDERED: ALBUTEROL SO4 HFA INHALER IH PRN (13:59)
[2019-10-13] MEDS: hydrOXYzine PAMOATE 25 MG CAPSULE (FP) PO PRN ×2 (16:33→21:26)
--- NOTE | 2019-10-13 18:58 | PN ---
[facility] Progress Note Note: Psychiatry Attending's note : Patient is now at [address] For rehabilitation. Continuation of order for : zyprexa 2.5 mg po hs Done.
[2019-10-13] MEDS ORDERED: PT OWN MED DRAWER 7, Y5N ONE (21:00)
[2019-10-13] MEDS: GABAPENTIN 400 MG CAPSULE PO SCH (21:24)
[2019-10-13] MEDS: MELATONIN 5 MG TABLETS PO SCH (21:24)
[2019-10-13] MEDS: THIAMINE HCL 100 MG TABLET (FP) PO SCH (21:25)
[2019-10-13] MEDS: NICOTINE POLACRILEX 2 MG GUM BUC PRN (21:26)
[2019-10-13] MEDS: HYDROCORTISONE 0.5% TOPICAL CREAM 30 GM TUBE TP SCH (22:04)
[2019-10-13] MEDS: OLANZapine 2.5 MG TABLET PO SCH ×2 (22:05→22:30)
[2019-10-14] MEDS: ELVITEG/COB/EMTRI/TENOF (GENVOYA) TABLET (NF) PO SCH (07:40)
[2019-10-14] MEDS: LOSARTAN POTASSIUM 25 MG TABLET PO SCH (09:47)
[2019-10-14] MEDS: NICOTINE 14 MG/24 HOURS TOPICAL PATCH TD SCH (09:48)
[2019-10-14] MEDS: HYDROCORTISONE 0.5% TOPICAL CREAM 30 GM TUBE TP SCH ×2 (09:48→21:18)
[2019-10-14] MEDS: GABAPENTIN 400 MG CAPSULE PO SCH ×2 (09:49→21:17)
[2019-10-14] MEDS: PRENATAL VITAMINS W/ FOLIC ACID TABLET (FP) PO SCH (09:51)
[2019-10-14] MEDS: hydrOXYzine PAMOATE 25 MG CAPSULE (FP) PO PRN (09:51)
[2019-10-14] MEDS: NICOTINE POLACRILEX 2 MG GUM BUC PRN (10:07)
[2019-10-14] MEDS: LIDOCAINE 5% TOPICAL PATCH TP SCH (12:51)
--- NOTE | 2019-10-14 14:03 | CONSULT ---
[facility] Psychiatric Consult - Data Date of interview: 10/14/19 Admission source: Transfer from [address] [place] [address]. Identifying data: First admission to [address] for this 44 y/o [place] male enlisting in rehabilitation treatment for maintenance of therapeutic gains from detoxification at [address] [place] [address] and management of co-morbid mood disorder (anxiety). AJAY issues : opioid, cocaine, cannabis, benzodiazepines, nicotine, alcohol. Patient is , father of two, chronically unemployed and currently supported on [facility] benefits. Substance Abuse History: Discussed with the patient. AJAY profile as follows : Heroin. Substance amount: 1 bundle. Frequency of use: Daily. Substance route: Injection (ex: intravenous or skin popping). Date of Last Use: 10/07/19. First use at age 19. ODX3, last was 1 wk ago, no narcan at home. Cocaine- Powder. Substance amount: $300. Frequency of use: Daily. Substance route: Inhalation (ex: sniffing or snorting). Date of Last Use: 10/07/19. First use at age 13. Marijuana/Hashish. Substance amount: 1 bag. Frequency of use: Daily. Substance route: Smoking. Date of Last Use: 10/07/19. First use at age 11. Nicotine. Substance amount: 3 ciggs. Frequency of use: Daily. Substance route: Smoking. Date of Last Use: 10/08/19. First use at age 13. History of multiple AJAY treatment failures. Medical History: Medical history remains remarkable for HIV infection since 2005 (on ART medications), hypertension and spinal surgery (4 screws and prothesis disk in spine) in 2017. No reported allergies. Psychiatric History: Patient denies history of psychiatric hospitalizations. Since he emigrated to [facility] in 1998, the patient had resumed psychiatric OPD care at [facility] (sees his psychiatrist at a clinic located at [address] [place] [address] in the [place]) to address depression + anxiety disorder (diagnosis was already established by clinicians in [facility] in 1998). Mr Roxanne continues to be on a regimen of olanzapine 2.5 mg/hs + hydroxyzine 50 mg/q 6 hrs prn (no clonazepam). Patient denies antecedent of suicide attempts. Physical/Sexual Abuse/Trauma History: Patient denies. Additional Comment: Urine drug screen results: THC-Marijuana, NAHUM-Cocaine, FEN- Fentanyl, MOP-Opiates. Noted. Mental Status Exam - Mental Status Exam Alert and Oriented to: Time, Place, Person Cognitive Function: Good Patient Appearance: Well Groomed (tattoos on uepper extremities) Mood: Anxious Affect: Mood Congruent, Labile Patient Behavior: Appropriate, Cooperative Speech Pattern: Clear, Appropriate Voice Loudness: Normal Thought Process: Intact, Goal Oriented Thought Disorder: Not Present Hallucinations: Denies Suicidal Ideation: Denies Homicidal Ideation: Denies Insight/Judgement: Fair Sleep: Fair Appetite: Good Gait/Station: Normal Psychiatric Findings - Problem List ([place] 1, 2,3) (1) Heroin dependence Current Visit: Yes Status: Chronic (2) Cannabis dependence Current Visit: Yes Status: Chronic (3) Cocaine dependence Current Visit: Yes Status: Chronic (4) Nicotine dependence Current Visit: Yes Status: Chronic (5) Substance induced mood disorder Current Visit: Yes Status: Chronic (6) History of depression Current Visit: Yes Status: Chronic (7) Anxiety disorder Current Visit: Yes Status: Chronic (8) Insomnia Current Visit: Yes Status: Chronic - Initial Treatment Plan Initial Treatment Plan: Psychoeducation. Rehabilitation treatment initiated : motivational counseling, individual/supportive/group therapy. Recurrent briefs on COVID-19 pandemic (social distancing, face mask, hand washing). Recreational therapy. Discussion of medications. Constant requests for benzodiazepines are addressed with education + firm limits. Patient has responded positively to current therapeutic interventions (described above). He agrees to take : olanzapine 2.5 mg po hs + buspar 5 mg po tid (just added to regimen, with patient's informed consent (verbal). Observation.
[2019-10-14] MEDS: hydrOXYzine PAMOATE 50 MG CAPSULE (FP) PO PRN ×2 (16:57→21:17)
[2019-10-14] MEDS: MELATONIN 5 MG TABLETS PO SCH (21:17)
[2019-10-14] MEDS: THIAMINE HCL 100 MG TABLET (FP) PO SCH (21:17)
[2019-10-14] MEDS: busPIRone HCL 5 MG TABLET PO SCH (21:18)
[2019-10-14] MEDS: LIDOCAINE PATCH REMOVAL MC SCH (21:20)
[2019-10-14] MEDS: OLANZapine 2.5 MG TABLET PO SCH (23:34)
[2019-10-15] MEDS ORDERED: PT OWN MED DRAWER 7, Y5N ONE ×3 (03:12→08:59)
[2019-10-15] MEDS: busPIRone HCL 5 MG TABLET PO SCH ×3 (06:24→21:31)
[2019-10-15] MEDS: ELVITEG/COB/EMTRI/TENOF (GENVOYA) TABLET (NF) PO SCH (07:04)
[2019-10-15] MEDS: LIDOCAINE 5% TOPICAL PATCH TP SCH (09:39)
[2019-10-15] MEDS: NICOTINE 14 MG/24 HOURS TOPICAL PATCH TD SCH (09:39)
[2019-10-15] MEDS: HYDROCORTISONE 0.5% TOPICAL CREAM 30 GM TUBE TP SCH ×2 (09:39→21:31)
[2019-10-15] MEDS: GABAPENTIN 400 MG CAPSULE PO SCH ×2 (09:40→21:29)
[2019-10-15] MEDS: PRENATAL VITAMINS W/ FOLIC ACID TABLET (FP) PO SCH (09:40)
[2019-10-15] MEDS: LOSARTAN POTASSIUM 25 MG TABLET PO SCH (09:41)
--- NOTE | 2019-10-15 14:44 | PN ---
S Progress Note Note: Rash on the back of his leg. PMHx of ringworm General: No apparent distress SKIN: One small, red, round, raise lesion on the back if left leg Vital Signs Period Temp Pulse Resp BP Sys/Khan Pulse Ox Last 24 Hr 97.5 F 94-112 18 118-142/82-97 95-97 A/P rash Will order lotrisone cream
[2019-10-15] MEDS: NICOTINE POLACRILEX 2 MG GUM BUC PRN (17:46)
[2019-10-15] MEDS: hydrOXYzine PAMOATE 50 MG CAPSULE (FP) PO PRN (21:29)
[2019-10-15] MEDS: MELATONIN 5 MG TABLETS PO SCH (21:29)
[2019-10-15] MEDS: THIAMINE HCL 100 MG TABLET (FP) PO SCH (21:29)
[2019-10-15] MEDS: LIDOCAINE PATCH REMOVAL MC SCH (21:31)
[2019-10-15] MEDS: CLOTRIMAZOLE 1% CREAM 15 GM TUBE TP SCH (21:31)
[2019-10-16] MEDS ORDERED: PT OWN MED DRAWER 7, Y5N ONE ×4 (05:17→16:16)
[2019-10-16] MEDS: busPIRone HCL 5 MG TABLET PO SCH (06:32)
[2019-10-16] MEDS: hydrOXYzine PAMOATE 50 MG CAPSULE (FP) PO PRN ×3 (06:34→21:25)
[2019-10-16] MEDS: LIDOCAINE 5% TOPICAL PATCH TP SCH (09:36)
[2019-10-16] MEDS: CLOTRIMAZOLE 1% CREAM 15 GM TUBE TP SCH ×2 (09:36→21:26)
[2019-10-16] MEDS: NICOTINE 14 MG/24 HOURS TOPICAL PATCH TD SCH (09:37)
[2019-10-16] MEDS: HYDROCORTISONE 0.5% TOPICAL CREAM 30 GM TUBE TP SCH ×2 (09:37→21:26)
[2019-10-16] MEDS: GABAPENTIN 400 MG CAPSULE PO SCH ×2 (09:37→21:25)
[2019-10-16] MEDS: PRENATAL VITAMINS W/ FOLIC ACID TABLET (FP) PO SCH (09:37)
[2019-10-16] MEDS: LOSARTAN POTASSIUM 25 MG TABLET PO SCH (09:39)
[2019-10-16] MEDS: NICOTINE POLACRILEX 2 MG GUM BUC PRN (09:44)
--- NOTE | 2019-10-16 12:15 | PN ---
S Progress Note Note: Patient reports experiencing adverse-effects with Buspar and requests to be ordered Elavil which along with Vistaril has helped her with the anxiety in the past. Elavil 25 mg/bid is substituted for Buspar 5 mg/tid
[2019-10-16] MEDS: AMITRIPTYLINE HCL 25 MG TABLET PO SCH ×2 (12:49→21:25)
[2019-10-16] MEDS: MELATONIN 5 MG TABLETS PO SCH (21:24)
[2019-10-16] MEDS: THIAMINE HCL 100 MG TABLET (FP) PO SCH (21:24)
[2019-10-16] MEDS: OLANZapine 2.5 MG TABLET PO SCH ×2 (21:24)
[2019-10-16] MEDS: LIDOCAINE PATCH REMOVAL MC SCH (21:26)
[2019-10-17] MEDS ORDERED: PT OWN MED DRAWER 7, Y5N ONE ×4 (06:20→22:16)
[2019-10-17] MEDS: ELVITEG/COB/EMTRI/TENOF (GENVOYA) TABLET (NF) PO SCH (07:52)
[2019-10-17] MEDS: LOSARTAN POTASSIUM 25 MG TABLET PO SCH (09:44)
[2019-10-17] MEDS: CLOTRIMAZOLE 1% CREAM 15 GM TUBE TP SCH ×2 (09:45→21:51)
[2019-10-17] MEDS: LIDOCAINE 5% TOPICAL PATCH TP SCH (09:45)
[2019-10-17] MEDS: HYDROCORTISONE 0.5% TOPICAL CREAM 30 GM TUBE TP SCH ×2 (09:45→21:51)
[2019-10-17] MEDS: AMITRIPTYLINE HCL 25 MG TABLET PO SCH ×2 (09:45→21:52)
[2019-10-17] MEDS: PRENATAL VITAMINS W/ FOLIC ACID TABLET (FP) PO SCH (09:46)
[2019-10-17] MEDS: GABAPENTIN 400 MG CAPSULE PO SCH ×2 (09:47→21:52)
[2019-10-17] MEDS: hydrOXYzine PAMOATE 50 MG CAPSULE (FP) PO PRN ×2 (09:48→19:23)
[2019-10-17] MEDS: NICOTINE 14 MG/24 HOURS TOPICAL PATCH TD SCH (09:48)
[2019-10-17] MEDS: NICOTINE POLACRILEX 2 MG GUM BUC PRN ×2 (09:49→21:55)
[2019-10-17] MEDS: OLANZapine 2.5 MG TABLET PO SCH (21:52)
[2019-10-17] MEDS: THIAMINE HCL 100 MG TABLET (FP) PO SCH (21:52)
[2019-10-17] MEDS: MELATONIN 5 MG TABLETS PO SCH (21:52)
[2019-10-17] MEDS: LIDOCAINE PATCH REMOVAL MC SCH (22:36)
[2019-10-18] MEDS: hydrOXYzine PAMOATE 50 MG CAPSULE (FP) PO PRN ×2 (06:10→21:07)
[2019-10-18] MEDS: ELVITEG/COB/EMTRI/TENOF (GENVOYA) TABLET (NF) PO SCH (07:26)
[2019-10-18] MEDS ORDERED: PT OWN MED DRAWER 7, Y5N ONE ×3 (08:16→22:10)
[2019-10-18] MEDS: LIDOCAINE 5% TOPICAL PATCH TP SCH (09:44)
[2019-10-18] MEDS: GABAPENTIN 400 MG CAPSULE PO SCH ×2 (09:44→21:05)
[2019-10-18] MEDS: CLOTRIMAZOLE 1% CREAM 15 GM TUBE TP SCH ×2 (09:44→22:27)
[2019-10-18] MEDS: NICOTINE 14 MG/24 HOURS TOPICAL PATCH TD SCH (09:44)
[2019-10-18] MEDS: LOSARTAN POTASSIUM 25 MG TABLET PO SCH (09:45)
[2019-10-18] MEDS: AMITRIPTYLINE HCL 25 MG TABLET PO SCH ×2 (09:45→21:05)
[2019-10-18] MEDS: PRENATAL VITAMINS W/ FOLIC ACID TABLET (FP) PO SCH (09:45)
[2019-10-18] MEDS: HYDROCORTISONE 0.5% TOPICAL CREAM 30 GM TUBE TP SCH ×2 (09:46→21:05)
[2019-10-18] MEDS: OLANZapine 2.5 MG TABLET PO SCH (21:05)
[2019-10-18] MEDS: THIAMINE HCL 100 MG TABLET (FP) PO SCH (21:05)
[2019-10-18] MEDS: LIDOCAINE PATCH REMOVAL MC SCH (21:05)
[2019-10-18] MEDS: MELATONIN 5 MG TABLETS PO SCH (21:06)
[2019-10-19] MEDS: hydrOXYzine PAMOATE 50 MG CAPSULE (FP) PO PRN ×3 (06:28→21:25)
[2019-10-19] MEDS: ELVITEG/COB/EMTRI/TENOF (GENVOYA) TABLET (NF) PO SCH (07:06)
[2019-10-19] MEDS ORDERED: PT OWN MED DRAWER 7, Y5N ONE ×2 (07:48→08:58)
[2019-10-19] MEDS: LIDOCAINE 5% TOPICAL PATCH TP SCH (09:41)
[2019-10-19] MEDS: AMITRIPTYLINE HCL 25 MG TABLET PO SCH ×2 (09:42→21:25)
[2019-10-19] MEDS: PRENATAL VITAMINS W/ FOLIC ACID TABLET (FP) PO SCH (09:42)
[2019-10-19] MEDS: GABAPENTIN 400 MG CAPSULE PO SCH ×2 (09:42→21:25)
[2019-10-19] MEDS: NICOTINE 14 MG/24 HOURS TOPICAL PATCH TD SCH (09:42)
[2019-10-19] MEDS: CLOTRIMAZOLE 1% CREAM 15 GM TUBE TP SCH (09:43)
[2019-10-19] MEDS: LOSARTAN POTASSIUM 25 MG TABLET PO SCH (10:16)
[2019-10-19] MEDS: HYDROCORTISONE 0.5% TOPICAL CREAM 30 GM TUBE TP SCH ×2 (10:17→21:27)
--- NOTE | 2019-10-19 13:06 | PN ---
[facility] Progress Note Note: Patient states current antifungal cream not helping for left posterior thigh fungal rash. Will change to Lotrisone Cr BID x 7 days. Vital Signs Temperature 97.8 F 10/19/19 06:51 Pulse Rate 100 H 10/19/19 09:17 Respiratory Rate 18 10/19/19 06:51 Blood Pressure 122/82 10/19/19 09:17 O2 Sat by Pulse Oximetry (%) 97 10/19/19 06:51
[2019-10-19] MEDS: CLOTRIMAZOLE/BETAMET DIPROP 15 GM TUBE TP SCH ×2 (15:05→23:55)
[2019-10-19] MEDS: MELATONIN 5 MG TABLETS PO SCH (21:25)
[2019-10-19] MEDS: THIAMINE HCL 100 MG TABLET (FP) PO SCH (21:25)
[2019-10-19] MEDS: OLANZapine 2.5 MG TABLET PO SCH (21:26)
[2019-10-19] MEDS: LIDOCAINE PATCH REMOVAL MC SCH (21:27)
[2019-10-20] MEDS ORDERED: PT OWN MED DRAWER 7, Y5N ONE ×2 (06:39→08:14)
[2019-10-20] MEDS: hydrOXYzine PAMOATE 50 MG CAPSULE (FP) PO PRN ×3 (06:39→21:20)
[2019-10-20] MEDS: NICOTINE POLACRILEX 2 MG GUM BUC PRN (06:50)
[2019-10-20] MEDS: ELVITEG/COB/EMTRI/TENOF (GENVOYA) TABLET (NF) PO SCH ×2 (07:20→08:00)
[2019-10-20] MEDS: AMITRIPTYLINE HCL 25 MG TABLET PO SCH ×2 (09:29→21:20)
[2019-10-20] MEDS: LOSARTAN POTASSIUM 25 MG TABLET PO SCH (09:29)
[2019-10-20] MEDS: CLOTRIMAZOLE/BETAMET DIPROP 15 GM TUBE TP SCH ×2 (09:30→21:20)
[2019-10-20] MEDS: LIDOCAINE 5% TOPICAL PATCH TP SCH (09:31)
[2019-10-20] MEDS: GABAPENTIN 400 MG CAPSULE PO SCH ×2 (09:31→21:20)
[2019-10-20] MEDS: NICOTINE 14 MG/24 HOURS TOPICAL PATCH TD SCH (09:32)
[2019-10-20] MEDS: PRENATAL VITAMINS W/ FOLIC ACID TABLET (FP) PO SCH (09:32)
[2019-10-20] MEDS: HYDROCORTISONE 0.5% TOPICAL CREAM 30 GM TUBE TP SCH ×2 (09:32→21:20)
[2019-10-20] MEDS: THIAMINE HCL 100 MG TABLET (FP) PO SCH (21:20)
[2019-10-20] MEDS: MELATONIN 5 MG TABLETS PO SCH (21:20)
[2019-10-20] MEDS: LIDOCAINE PATCH REMOVAL MC SCH (21:20)
[2019-10-20] MEDS: OLANZapine 2.5 MG TABLET PO SCH (21:21)
[2019-10-21] MEDS: hydrOXYzine PAMOATE 50 MG CAPSULE (FP) PO PRN ×3 (06:47→21:04)
[2019-10-21] MEDS: ELVITEG/COB/EMTRI/TENOF (GENVOYA) TABLET (NF) PO SCH (07:07)
[2019-10-21] MEDS ORDERED: PT OWN MED DRAWER 7, Y5N ONE ×3 (07:27→21:05)
[2019-10-21] MEDS: AMITRIPTYLINE HCL 25 MG TABLET PO SCH ×2 (09:54→21:04)
[2019-10-21] MEDS: GABAPENTIN 400 MG CAPSULE PO SCH ×2 (09:54→21:04)
[2019-10-21] MEDS: PRENATAL VITAMINS W/ FOLIC ACID TABLET (FP) PO SCH (09:54)
[2019-10-21] MEDS: LIDOCAINE 5% TOPICAL PATCH TP SCH (09:54)
[2019-10-21] MEDS: NICOTINE 14 MG/24 HOURS TOPICAL PATCH TD SCH (09:54)
[2019-10-21] MEDS: LOSARTAN POTASSIUM 25 MG TABLET PO SCH (09:55)
[2019-10-21] MEDS: HYDROCORTISONE 0.5% TOPICAL CREAM 30 GM TUBE TP SCH ×2 (09:55→21:07)
[2019-10-21] MEDS: CLOTRIMAZOLE/BETAMET DIPROP 15 GM TUBE TP SCH ×2 (09:57→21:06)
[2019-10-21] MEDS: MELATONIN 5 MG TABLETS PO SCH (21:04)
[2019-10-21] MEDS: THIAMINE HCL 100 MG TABLET (FP) PO SCH (21:04)
[2019-10-21] MEDS: LIDOCAINE PATCH REMOVAL MC SCH (21:06)
[2019-10-21] MEDS: OLANZapine 2.5 MG TABLET PO SCH (23:13)
[2019-10-22] MEDS ORDERED: PT OWN MED DRAWER 7, Y5N ONE ×2 (06:22→08:39)
[2019-10-22] MEDS: hydrOXYzine PAMOATE 50 MG CAPSULE (FP) PO PRN ×2 (07:28→21:06)
[2019-10-22] MEDS: ELVITEG/COB/EMTRI/TENOF (GENVOYA) TABLET (NF) PO SCH (07:28)
[2019-10-22] MEDS: GABAPENTIN 400 MG CAPSULE PO SCH ×2 (09:25→21:06)
[2019-10-22] MEDS: PRENATAL VITAMINS W/ FOLIC ACID TABLET (FP) PO SCH (09:25)
[2019-10-22] MEDS: HYDROCORTISONE 0.5% TOPICAL CREAM 30 GM TUBE TP SCH ×2 (09:25→21:08)
[2019-10-22] MEDS: LOSARTAN POTASSIUM 25 MG TABLET PO SCH (09:25)
[2019-10-22] MEDS: AMITRIPTYLINE HCL 25 MG TABLET PO SCH ×2 (09:25→21:06)
[2019-10-22] MEDS: CLOTRIMAZOLE/BETAMET DIPROP 15 GM TUBE TP SCH ×2 (09:26→21:08)
[2019-10-22] MEDS: NICOTINE 14 MG/24 HOURS TOPICAL PATCH TD SCH (09:26)
[2019-10-22] MEDS: LIDOCAINE 5% TOPICAL PATCH TP SCH (09:26)
--- NOTE | 2019-10-22 10:19 | PN ---
[facility] Progress Note Note: Patient is scheduled for discharge tomorrow. Scripts for 30 days supply of medications(Zyprexa 2.5 mg/hs, Elavil 25 mg/bid) will be electronically transmitted to [facility], [address] [place] [id number]
[2019-10-22] MEDS: MELATONIN 5 MG TABLETS PO SCH (21:06)
[2019-10-22] MEDS: THIAMINE HCL 100 MG TABLET (FP) PO SCH (21:06)
[2019-10-22] MEDS: OLANZapine 2.5 MG TABLET PO SCH (21:08)
[2019-10-22] MEDS: LIDOCAINE PATCH REMOVAL MC SCH (21:08)
[2019-10-23] MEDS: hydrOXYzine PAMOATE 50 MG CAPSULE (FP) PO PRN (06:11)
[2019-10-23 06:45] VITALS: BP 138/88; PULSE 90; TEMP 98
[2019-10-23] MEDS: ELVITEG/COB/EMTRI/TENOF (GENVOYA) TABLET (NF) PO SCH (07:01)
[2019-10-23] MEDS ORDERED: PT OWN MED DRAWER 7, Y5N ONE (08:15)
--- NOTE | 2019-10-23 08:48 | DS ---
[facility] Rehab Discharge Summary - [facility] Rehab Discharge Summary Admission Date: 10/13/19 Discharge Date: 10/23/19 - History Present History: Opioid dependence - Discharge Physical Exam Vital Signs: Vital Signs Temperature 98.0 F 10/23/19 06:06 Pulse Rate 90 10/23/19 06:06 Respiratory Rate 20 10/23/19 06:06 Blood Pressure 138/88 10/23/19 06:06 O2 Sat by Pulse Oximetry (%) 99 10/23/19 06:06 Ambulatory Orders hydrOXYzine PAMOATE [Vistaril -] 50 mg PO Q4H PRN capsule 10/13/19 Albuterol Sulfate Inhaler - [Ventolin HFA Inhaler -] 1 - 2 inh PO QID PRN #1 inhaler 10/22/19 Amitriptyline HCl [Elavil -] 25 mg PO BID #60 tablet 10/22/19 Elviteg/Cob/Emtri/Tenof Alafen [Genvoya Tablet] 1 each PO DAILY #30 tablet 10/22/19 Gabapentin 800 mg PO BID #20 tablet 10/22/19 Hydrocortisone 0.5% Cream [Hytone 0.5% Cream -] 1 applic TP BID #1 tube 10/22/19 Losartan Potassium [Cozaar -] 25 mg PO DAILY #14 tablet 10/22/19 Melatonin 5 mg PO HS #14 tablet 10/22/19 Olanzapine 2.5 mg PO HS #30 tablet 10/22/19 ros: denies opiod cravings, shakes, sweats and anxiety. pe: alert and oriented x 3 skin warm and dry car s1s2 resp cta bl ext full rom, amb ad manan no tremors a/p: opiod dependence hiv+ medically stable for discharge aftercare arranged [facility] - Treatment Discharge Condition: Discharge condition good Hospital Course: Patient discharged from rehab today for opiod dependence. During course of treatment, patient attended group meetings, 1:1 sessions with counseling team and evaluated and treated by psych team. Patient is medically stable and denies SI/HI. Aftercare arranged for [facility]. Patient advised to follow up with PCP as recommended and to continue with outpatient treatment to maintain sobriety. - Medication Discharge Medications: Ambulatory Orders hydrOXYzine PAMOATE [Vistaril -] 50 mg PO Q4H PRN capsule 10/13/19 Albuterol Sulfate Inhaler - [Ventolin HFA Inhaler -] 1 - 2 inh PO QID PRN #1 inhaler 10/22/19 Amitriptyline HCl [Elavil -] 25 mg PO BID #60 tablet 10/22/19 Elviteg/Cob/Emtri/Tenof Alafen [Genvoya Tablet] 1 each PO DAILY #30 tablet 10/22/19 Gabapentin 800 mg PO BID #20 tablet 10/22/19 Hydrocortisone 0.5% Cream [Hytone 0.5% Cream -] 1 applic TP BID #1 tube 10/22/19 Losartan Potassium [Cozaar -] 25 mg PO DAILY #14 tablet 10/22/19 Melatonin 5 mg PO HS #14 tablet 10/22/19 Olanzapine 2.5 mg PO HS #30 tablet 10/22/19 - Medication-Assisted Treatment (MAT) Medication-Assisted Treatment (MAT): No MAT Follow-up Referral: [facility] OTP - Discharge Instructions Diet, activity, other medical instructions: Diet: Reg as tolerated Activity: as tolerated Other medical instructions: f/u with pcp as recommended - Follow-up Referral Minutes to complete discharge: 40 - AMA Did Patient Leave Against Medical Advice: No
[2019-10-23] MEDS: AMITRIPTYLINE HCL 25 MG TABLET PO SCH (09:08)
[2019-10-23] MEDS: GABAPENTIN 400 MG CAPSULE PO SCH (09:08)
[2019-10-23] MEDS: NICOTINE 14 MG/24 HOURS TOPICAL PATCH TD SCH (09:09)
[2019-10-23] MEDS: PRENATAL VITAMINS W/ FOLIC ACID TABLET (FP) PO SCH (09:09)
[2019-10-23] MEDS: LIDOCAINE 5% TOPICAL PATCH TP SCH (09:11)
[2019-10-23] MEDS: CLOTRIMAZOLE/BETAMET DIPROP 15 GM TUBE TP SCH (09:11)
[2019-10-23] MEDS: HYDROCORTISONE 0.5% TOPICAL CREAM 30 GM TUBE TP SCH (09:11)
[2019-10-23] MEDS: LOSARTAN POTASSIUM 25 MG TABLET PO SCH (09:29)
== END 2019-10-23 09:43 | disposition home or self-care (01) | DRG 772 ==
LOC: YASAS 13:20 → Y3E 13:21
PROVIDERS: ADMIT Allergy & Immunology; ATTEND Allergy & Immunology
PROC: HZ42ZZZ Group Counseling for Substance Abuse Treatment, Cognitive-Behavioral (ICD-10-PCS; principal; 2019-10-13)
DX: F11.20 Opioid dependence, uncomplicated (principal); F14.20 Cocaine dependence, uncomplicated; F12.20 Cannabis dependence, uncomplicated; F17.210 Nicotine dependence, cigarettes, uncomplicated; F19.24 Other psychoactive substance dependence with psychoactive substance-induced mood disorder; F41.9 Anxiety disorder, unspecified; I10 Essential (primary) hypertension; Z21 Asymptomatic human immunodeficiency virus [HIV] infection status; R21 Rash and other nonspecific skin eruption; G47.00 Insomnia, unspecified
CPT/HCPCS: 71046-TC-FY